=== PATIENT | female | born 1950 | race Caucasian/White ===

== ENCOUNTER 2016-04-11 12:33 | Observation (INO) | payer OTHER, BC ==
--- NOTE | 2016-04-11 12:32 | EDPHY ---
H & P Time Seen by Provider: 04/11/16 12:33 HPI/ROS: CHIEF COMPLAINT: Altered and confused HISTORY OF PRESENT ILLNESS: History from paramedics as well as the patient's partner, Benny Lindsey who presents to the emergency department shortly after her arrival. She takes OxyContin and baclofen as well as Depakote and was found screaming by staff at her residence. On EMS arrival the patient was not verbal, combative, and unable to answer questions. REVIEW OF SYSTEMS: No recent illnesses per the patient's partner. No history of trauma per EMS with the patient's partner. Baseline mental status is normally conversant, baseline physical activity is wheelchair-bound. A comprehensive 10 point review of systems and further history is unobtainable on arrival because of the patient's altered mental status. PAST MEDICAL HISTORY: Multiple sclerosis. No history of suicide attempt per her partner. Social history: No alcohol or tobacco. Moved here 2 months ago from [place]. General Appearance: Patient is alert with eyes open but nonverbal, not cooperative. Eyes: No scleral icterus. Pupils 3 mm reactive. ENT, Mouth: Normal mucous membranes. No tongue laceration or abrasion. Respiratory: Normal respiratory effort, breath sounds equal, lungs are clear to auscultation. Cardiovascular: Regular rate and rhythm. Gastrointestinal: Abdomen is soft and non tender. Neurological: Alert and spontaneously moving all 4 extremities. Combative and resisting attempts to undress her or examine her or start an IV. Face symmetric. Localizes pain. Skin: Warm and dry, no rashes. Musculoskeletal: No peripheral edema and no joint swelling. No joint deformity and no neck stiffness. Psychiatric: Unable, nonverbal. Emergency Department course/MDM: Patient's partner relates that in the past she has occasionally taken too much of her medication resulting in altered mental status. She does not have any external evidence of trauma. She is not febrile. 1250: "move my legs" a little bit more alert, much more likely metabolic or drug related than trauma, structural intracranial abnormality, or infection. 1335: can form a sentence and more alert, Sherry for [place] to stepdown. The patient does not have focal neurologic deficit, clinically is improving, no evidence of trauma, no anticoagulation. I do not think emergent cranial imaging is indicated unless her clinical condition changes. Constitutional: Initial Vital Signs Temperature (C) 36.7 C 04/11/16 12:36 Heart Rate 94 04/11/16 12:36 Respiratory Rate 24 H 04/11/16 12:36 Blood Pressure 150/79 H 04/11/16 12:36 O2 Sat (%) 84 L 04/11/16 12:36 O2 Delivery Mode Room Air O2 (L/minute) 2 Allergies/Adverse Reactions: No Known Allergies Allergy (Unverified 04/11/16 12:50) Home Medications: Medication Instructions Recorded Acyclovir 04/11/16 Calcium 04/11/16 Divalproex [Depakote Sprinkle 125 04/11/16 MG (*)] GABAPENTIN 04/11/16 Methylphenidate 04/11/16 Curran 3 1,000 mg Softgel 04/11/16 Oxycontin 04/11/16 Sulfamethox/Tmp 04/11/16 traZODone 04/11/16 Medical Decision Making - Diagnostics EKG Interpretation: 12-lead EKG interpreted by me; official reading is in trace master. My interpretation is sinus rhythm rate 80 with APC otherwise normal. Imaging: Chest x-ray viewed independently by myself shows no infiltrates or other acute abnormality. Differential Diagnosis: Differential considered including but not limited to intracranial bleed or head trauma, metabolic or hypoglycemia, drug or alcohol, medication reaction or overdose. - Data Points Laboratory Results: Laboratory Results 04/11/16 12:35 04/11/16 12:35 04/11/16 04/11/16 04/11/16 13:00 12:35 12:34 WBC 5.98 10^3/uL (3.80-9.50) RBC 4.62 10^6/uL (4.18-5.33) Hgb 14.1 g/dL (12.6-16.3) POC Hgb 15.6 gm/dL (12.3-15.9) Hct 42.9 % (38.0-47.0) POC Hct 46 % (35.5-47.5) MCV 92.9 fL (81.5-99.8) MCH 30.5 pg (27.9-34.1) MCHC 32.9 g/dL (32.4-36.7) RDW 14.6 % (11.5-15.2) Plt Count 203 10^3/uL (150-400) MPV 12.1 H fL (8.7-11.7) Neut % (Auto) 61.0 % (39.3-74.2) Lymph % (Auto) 21.2 % (15.0-45.0) [place] % (Auto) 15.4 H % (4.5-13.0) Eos % (Auto) 2.0 % (0.6-7.6) Baso % (Auto) 0.2 L % (0.3-1.7) Nucleat RBC Rel Count 0.0 % (0.0-0.2) Absolute Neuts (auto) 3.65 10^3/uL (1.70-6.50) Absolute Lymphs (auto) 1.27 10^3/uL (1.00-3.00) Absolute Monos (auto) 0.92 H 10^3/uL (0.30-0.80) Absolute Eos (auto) 0.12 10^3/uL (0.03-0.40) Absolute Basos (auto) 0.01 L 10^3/uL (0.02-0.10) Absolute Nucleated RBC 0.00 10^3/uL (0-0.01) Immature Gran % 0.2 % (0.0-1.1) Immature Gran # 0.01 10^3/uL (0.00-0.10) POC Sodium 144 mEq/L (134-144) Sodium 145 H mEq/L (134-144) POC Potassium 3.4 mEq/L (3.3-5.0) Potassium 3.9 mEq/L (3.5-5.2) POC Chloride 101 mEq/L (96-108) Chloride 105 mEq/L (97-110) Carbon Dioxide 28 mEq/l (22-31) Anion Gap 12 mEq/L (8-16) POC BUN 11 mg/dL (7-23) BUN 12 mg/dL (7-23) Creatinine 0.5 L mg/dL (0.6-1.0) POC Creatinine 0.6 mg/dL (0.6-1.2) Estimated GFR > 60 Glucose 116 H mg/dL (70-100) POC Glucose 122 H mg/dL (70-100) Calcium 9.6 mg/dL (8.5-10.4) Urine RBC NONE SEEN /hpf (0-3) Urine WBC 1-3 /hpf (0-3) Ur Epithelial Cells NONE SEEN /lpf (NONE-1+) Urine Bacteria NONE SEEN /hpf (NONE SEEN) Urine Mucus NONE SEEN /lpf (NONE-1+) Salicylates < 1.0 L mg/dL (2.0-20.0) Urine Opiates Screen NEGATIVE (NEGATIVE) Acetaminophen < 10 L mcg/mL (10.0-30.0) Urine Barbiturates NEGATIVE (NEGATIVE) Valproic Acid 33.7 L mcg/mL (50.0-150.0) Ur Phencyclidine Scrn NEGATIVE (NEGATIVE) Ur Amphetamine Screen NEGATIVE (NEGATIVE) U Benzodiazepines Scrn NEGATIVE (NEGATIVE) Urine Cocaine Screen NEGATIVE (NEGATIVE) U Marijuana (THC) Screen NEGATIVE (NEGATIVE) Ethyl Alcohol < 10 mg/dL (0-10) Medications Given: Discontinued Medications Sodium Chloride (Ns) 1,000 mls @ 0 mls/hr IV ONCE ONE PRN Reason: Wide Open Stop: 04/11/16 12:55 Last Admin: 04/11/16 12:59 Dose: 1,000 mls Point of Care Test Results: 04/11/16 12:34 POC Sodium 144 POC Potassium 3.4 POC Chloride 101 POC BUN 11 POC Creatinine 0.6 POC Glucose 122 H Departure - Departure Disposition: [facility] Inpatient Acute Clinical Impression: Altered mental status Condition: Serious
[2016-04-11] MEDS ORDERED: NS 1,000 ML IV ONE (12:54)
[2016-04-11 13:01] LABS: % IMMATURE GRANULYOCYTES 0.2 % (0.0-1.1); ABSOLUTE IMMATURE GRANULOCYTES 0.01 10^3/uL (0.00-0.10); ADD DIFF? NO; ADD MORPH? NO; ADD SCAN? NO; ATYPICAL LYMPHOCYTE FLAG 10 (0-99); FRAGMENT RBC FLAG 0 (0-99); HEMATOCRIT 42.9 % (38.0-47.0); HEMOGLOBIN 14.1 g/dL (12.6-16.3); LEFT SHIFT FLG 0 (0-99); LIPEMIA HEMOLYSIS FLAG 80 (0-99); MEAN CELL HEMOGLOBIN 30.5 pg (27.9-34.1); MEAN CELL HEMOGLOBIN CONCENTR. 32.9 g/dL (32.4-36.7); MEAN CELL VOLUME 92.9 fL (81.5-99.8); MEAN PLATELET VOLUME 12.1 fL (8.7-11.7); PLATELET CLUMPS FLAG 10 (0-99); PLATELET COUNT 203 10^3/uL (150-400); RED BLOOD CELL COUNT 4.62 10^6/uL (4.18-5.33); RED CELL DISTRIBUTION WIDTH 14.6 % (11.5-15.2)
--- NOTE | 2016-04-11 13:22 | CPEKG ---
Heart Rate: 80 RR Interval: 750 P-R Interval: 152 QRSD Interval: 74 QT Interval: 416 QTC Interval: 480 P [place]: 67 QRS [place]: 28 T Wave [place]: 55 EKG Severity - OTHERWISE NORMAL ECG - EKG Impression: SINUS RHYTHM EKG Impression: ATRIAL PREMATURE COMPLEX Electronically Signed By: Devendra Mittal 11-Apr-2016 13:50:21
[2016-04-11 13:23] LABS: ANION GAP 12 mEq/L (8-16); CALCIUM 9.6 mg/dL (8.5-10.4); CARBON DIOXIDE 28 mEq/l (22-31); CHLORIDE 105 mEq/L (97-110); CREATININE 0.5 mg/dL (0.6-1.0); ETHANOL SERUM < 10 mg/dL (0-10); GLOMERULAR FILTRATION RATE > 60; GLUCOSE 116 mg/dL (70-100); POTASSIUM 3.9 mEq/L (3.5-5.2); SALICYLATE < 1.0 mg/dL (2.0-20.0); SODIUM 145 mEq/L (134-144)
[2016-04-11 13:28] LABS: BACTERIA NONE SEEN /hpf (NONE SEEN); MUCUS NONE SEEN /lpf (NONE-1+); RBC,URINE NONE SEEN /hpf (0-3)
--- NOTE | 2016-04-11 14:41 | DX ---
Portable AP chest. 04/11/2016 at 1315 History: Altered mental status. Hypoxia. Findings: Lungs are clear. Heart size is normal. No infiltrate, effusion, pneumothorax. Impression: Negative portable chest
[2016-04-11] MEDS ORDERED: ALBUTEROL 3 ML DEYVIAL IH PRN (15:14)
[2016-04-11] MEDS ORDERED: PROMETHAZINE HCL 25 MG/ML INJ IVP PRN (15:14)
[2016-04-11] MEDS ORDERED: ACETAMINOPHEN 325 MG TAB PO PRN (15:14)
[2016-04-11] MEDS ORDERED: LORazepam 2 MG/ML INJ IVP PRN (15:14)
[2016-04-11] MEDS ORDERED: LORazepam 0.5 MG TAB PO PRN (15:14)
[2016-04-11] MEDS ORDERED: ONDANSETRON 4 MG/2 ML VIAL IVP PRN (15:14)
[2016-04-11] MEDS ORDERED: ONDANSETRON DISINTEGRATING 4 MG TAB PO PRN (15:14)
[2016-04-11] MEDS ORDERED: NS 1,000 ML IV SCH (15:15)
[2016-04-11] MEDS: oxyCODONE IR 5 MG TAB PO PRN (15:38)
[2016-04-11] MEDS ORDERED: HALOPERIDOL LACT 5 MG/ML INJ IVP PRN (16:02)
--- NOTE | 2016-04-11 16:46 | GHP ---
[f rep st] HISTORY AND PHYSICAL DATE OF ADMISSION: 04/11/2016 CHIEF COMPLAINT: Confusion. HISTORY: This is a 65-year-old female with a past medical history of multiple sclerosis and chronic pain, with continuous narcotic use and dependency, who was found agitated and confused at her assiste d living center. The patient has recently moved here from [place]. At the time of my evaluation, t he patient remains somewhat combative and tangential, having difficulty answering questions appropria tely. The majority of this history is obtained per chart review and from the patient's partner who h ad previously been present in the ER. It sounds as if she was found with multiple pill bottles open on her chest, and there was a concern that she had taken too many of her pain medications. Apparentl y, she has done similar things in the past. At the time of my evaluation, she was able to tell me th at she did not do this on purpose but because her legs were hurting her. It does seem as if even rou tinely she takes what would typically be an overdose of baclofen at 40 mg, five times a day. She has no other complaints, other than wanting to get out of the hospital and stating that her legs hurt. PAST MEDICAL HISTORY: 1. Multiple sclerosis. 2. Prior inadvertent medication overdoses. 3. Chronic pain with continuous narcotic use and dependency. SOCIAL HISTORY: The patient is a nondrinker and non drug user. No significant alcohol use. She mov ed here two months ago for [place] and is living at the [facility]. FAMILY HISTORY: This is unobtainable, secondary to the patient's mental status, and not available in the chart. REVIEW OF SYSTEMS: Unobtainable, secondary to patient's mental status, though for what it is worth, a 10-point review of systems was attempted to be obtained negative, as far as the patient is able to tell me. MEDICATIONS: Include: 1. Baclofen 40 every five hours. 2. Trazodone 300 at bedtime. 3. OxyContin 15 q.8h. 4. [place]-3 fatty acids. 5. Gabapentin 800, three times daily. 6. Depakote 250 daily. 7. Calcium. 8. Acyclovir. ALLERGIES: No known drug allergies. PHYSICAL EXAM: VITAL SIGNS: BP 106/68, heart rate 67, respiratory rate 12, O2 saturation 98% on nila m air, temperature 36.7. GENERAL APPEARANCE: This is a chronically ill-appearing, thin female. She is awake and alert. She is agitated. EYES: Anicteric. HENT: Oropharynx clear. CARDIOVASCULAR: RRR, no MRG. PULMONARY: CTA bilaterally. ABDOMEN: Soft , nontender. Positive bowel sounds. EXTREMITIES: Decreased bulk, normal tone, no clubbing cyanosis or edema. SKIN: Warm, dry and well perfused. NEURO/PSYCHIATRIC: Again, the patient is agitated and tangential. She is moving all 4 extremities. Cranial nerves appear to be intact. She is having difficulty following commands, secondary to her a gitation. CLINICAL DATA: Labs reviewed. White count of 5.9, hematocrit 42.9. Chemistry remarkable for sodium 145, creatinine 0.5. Urinalysis is unremarkable UTox is negative. EKG reviewed and interpreted independently by myself showing sinus rhythm without ischemic changes. Chest x-ray, reviewed and interpreted independently by myself showing a negative portable chest. Dennise gs clear. ASSESSMENT AND PLAN: This is a 65-year-old female, past medical history of multiple sclerosis, chron ic pain and continuous narcotic use and dependency, who presents with likely inadvertent medication o verdose. 1. Inadvertent overdose, likely baclofen and OxyContin which were found on her body. She is awake a nd protecting her airway, though she remains agitated. This does sound as if it has been a problem f or her in the past as well but not related to suicidal ideation. The plan will be to monitor her ove rnight on telemetry. Again, at this time, she does appear to be both mentating able to protect her a irway and in fact is very adamant that she wants to go home. 2. Acute encephalopathy, in the setting of likely inadvertent drug overdose. She does seem to be cl earing rapidly. She is agitated. I suspect this is a toxic metabolic encephalopathy, in the setting of medication overdose including baclofen and OxyContin. As needed Ativan and Haldol and overnight monitoring. 3. Chronic pain, with continuous narcotic use and dependency. Will likely resume her regimen of Oxy Contin, though will first start with short-acting oxycodone to be sure that she does not become somno lent again. We will put her on a more appropriate dose of baclofen at 20 three times daily. We will monitor and see if resuming her home regimen is appropriate, though at this point I have concerns th at it has led to her confusion as above. 4. Multiple sclerosis. She does not seem to be suffering any thing that would suggest a multiple sc lerosis exacerbation. Will give her some names for some local neurologists, in case she has not yet established care. We will continue her gabapentin and again lower dose baclofen. 5. Disposition. Observation status. I suspect she will be ready for discharge tomorrow, so long as her mental status has improved. The patient is in my care. Old records reviewed and summarized, as per HPI and past medical history. Care plan reviewed with ER physician, including plans for observation overnight. /[id number]/MODL
[2016-04-11] MEDS: GABAPENTIN 400 MG CAP PO SCH ×2 (20:30→23:07)
[2016-04-11] MEDS: ACYCLOVIR 400 MG TAB PO SCH (20:30)
[2016-04-11] MEDS: BACLOFEN 20 MG TAB PO SCH ×2 (20:30→23:08)
[2016-04-11] MEDS ORDERED: traZODone 100 MG TAB PO SCH (21:00)
[2016-04-12 05:22] LABS: % IMMATURE GRANULYOCYTES 0.4 % (0.0-1.1); ABSOLUTE IMMATURE GRANULOCYTES 0.04 10^3/uL (0.00-0.10); ADD DIFF? NO; ADD MORPH? NO; ADD SCAN? NO; ATYPICAL LYMPHOCYTE FLAG 0 (0-99); FRAGMENT RBC FLAG 0 (0-99); HEMATOCRIT 38.4 % (38.0-47.0); HEMOGLOBIN 12.6 g/dL (12.6-16.3); LEFT SHIFT FLG 0 (0-99); LIPEMIA HEMOLYSIS FLAG 80 (0-99); MEAN CELL HEMOGLOBIN 30.7 pg (27.9-34.1); MEAN CELL HEMOGLOBIN CONCENTR. 32.8 g/dL (32.4-36.7); MEAN CELL VOLUME 93.7 fL (81.5-99.8); MEAN PLATELET VOLUME 11.8 fL (8.7-11.7); PLATELET CLUMPS FLAG 10 (0-99); PLATELET COUNT 187 10^3/uL (150-400); RED CELL DISTRIBUTION WIDTH 14.7 % (11.5-15.2)
[2016-04-12 05:40] LABS: ANION GAP 8 mEq/L (8-16); CALCIUM 8.9 mg/dL (8.5-10.4); CARBON DIOXIDE 27 mEq/l (22-31); CHLORIDE 107 mEq/L (97-110); CREATININE 0.5 mg/dL (0.6-1.0); GLOMERULAR FILTRATION RATE > 60; GLUCOSE 114 mg/dL (70-100); POTASSIUM 4.1 mEq/L (3.5-5.2); SODIUM 142 mEq/L (134-144)
[2016-04-12 07:59] LABS: COLOR PALE YELLOW; LEUKOCYTE ESTERASE,URINE NEGATIVE (NEGATIVE); NITRITE,URINE NEGATIVE (NEGATIVE)
[2016-04-12 08:01] VITALS: RESP 16; TEMP 99.5
[2016-04-12] MEDS ORDERED: CALCIUM CARBONATE 500 MG TAB PO SCH (09:00)
[2016-04-12] MEDS ORDERED: OMEGA-3 FATTY ACIDS 1,000 MG CAP PO SCH (09:00)
[2016-04-12] MEDS ORDERED: ENOXAPARIN 40 MG/0.4 ML SYR SC SCH (09:00)
[2016-04-12] MEDS ORDERED: DIVALPROEX ER 250 MG TAB PO SCH (09:00)
[2016-04-12] MEDS: oxyCODONE IR 5 MG TAB PO PRN (09:09)
[2016-04-12] MEDS: GABAPENTIN 400 MG CAP PO SCH (09:10)
[2016-04-12] MEDS: ACYCLOVIR 400 MG TAB PO SCH (09:10)
[2016-04-12] MEDS: BACLOFEN 20 MG TAB PO SCH (09:20)
[2016-04-12] MEDS ORDERED: oxyCODONE CR 15 MG TAB PO SCH (11:00)
[2016-04-12] MEDS ORDERED: BACLOFEN 20 MG TAB PO SCH (11:00)
[2016-04-12] MEDS ORDERED: PNEUMOC 13-VAL CONJ-DIP CRM/PF 0.5 ML SYR IM ONE (11:08)
[2016-04-12 12:04] VITALS: BP 117/74; PULSE 66; O2SAT 96
--- NOTE | 2016-04-12 20:19 | GDS ---
[f rep st] DISCHARGE SUMMARY DISCHARGE DIAGNOSES: 1. Inadvertent baclofen overdose. 2. Multiple sclerosis with spasticity. 3. Acute toxic encephalopathy. 4. Chronic pain with continuous narcotic dependency. HISTORY: This patient is a 65-year-old female with a longstanding history of multiple sclerosis and chronic pain. She takes very high doses of baclofen for her spasticity. She occasionally will take extra doses when she is really struggling with it. On the night prior to admission, it appears she d id take extra doses of baclofen and oxycodone and subsequently presented with severe encephalopathy d ue to this inadvertent overdose. There is no evidence of her being suicidal. She was monitored over night in the ICU and woke up. She was counseled at length regarding not taking any further extra dos es of her medications. It was also recommended she consider decreasing her baclofen, as her standing dose is much higher than the highest recommended max dose. She refused, stating she had been on thi s medication for many years. I will defer to her outpatient providers. She was seen by Physical The rapy and felt to be near baseline regarding her functional status and cleared to go back to [facility] where she lives. DISCHARGE MEDICATIONS: Please see computer record for full detailed list. There are no new medicati ons given at the time of hospital discharge. The patient was seen and examined by me on day of discharge. /[id number]/MODL
== END 2016-04-12 12:49 | disposition home or self-care (01) ==
LOC: INTOOBSV 13:43 → F2N 18:11
PROVIDERS: ADMIT Internal Medicine; ATTEND Internal Medicine
DX: T42.8X1A Poisoning by antiparkinsonism drugs and other central muscle-tone depressants, accidental (unintentional), initial encounter (principal); G35 Multiple sclerosis; G89.29 Other chronic pain; Z23 Encounter for immunization
CPT/HCPCS: 71010; 90670; 93005; 96360; 97163; 97165; 99285; G0009; G0378; G8978; G8979; G8980; G8987; G8988; G8989; 80305; 82947-QW; G0480; J1650

== ENCOUNTER 2016-06-13 01:42 | Inpatient (IN) | payer OTHER, MEDICARE ==
--- NOTE | 2016-06-13 01:55 | EDPHY ---
H & P Time Seen by Provider: 06/13/16 01:49 HPI/ROS: Chief Complaint: Weakness, dizziness, fall HPI: 65-year-old woman with a history of MS states that for the last several days she has been keeping increasingly weak and dizzy. She had a fall earlier this evening and struck her head. She denies loss of consciousness. She has continued to complain of dizziness and called EMS for concerns about an MS exacerbation. Patient has been very somnolent for EMS but arousable. She does take 50 mg of oxycodone 3 times a day for her chronic MS pain. She states there have been no changes to her medications recently. No fevers or chills. No urinary problems. She does not straight cath. No chest pain or shortness of breath. No headache. ROS: 10 point Review of Systems is negative except as noted in the HPI. PMH: Multiple sclerosis Medications: Baclofen, OxyContin, trazodone, gabapentin, methylphenidate, Allergies: No known drug allergies Social History: No smoking, no alcohol, no recreational drug use Family History: non-contributory Physical Exam: Gen: Somnolent, arousable, answering questions which is soft sleeve during history HEENT: The has a abrasion to the bridge of her nose, infraorbital ecchymosis on the left without facial deformity or tenderness Nose: no rhinorrhea Eyes: PERRLA, 2 mm and reactive bilaterally EOMI Mouth: Dry oral mucosa Neck: Supple, no JVD Chest: nontender, lungs clear to auscultation Heart: S1, S2 normal, no murmur Abd: Soft, non-tender, no guarding Back: no CVA tenderness, no midline tenderness Ext: no edema, non-tender Skin: no rash Neuro: CN II-XII intact, Sensation grossly intact, Strength 5/5 in bilateral upper and lower extremities - Medical/Surgical History Hx Asthma: No Hx Chronic Respiratory Disease: No Hx Diabetes: No Hx Cardiac Disease: No Hx Renal Disease: No Hx Cirrhosis: No Hx Alcoholism: No Hx HIV/AIDS: No Hx Splenectomy or Spleen Trauma: No Other PMH: PMH: MS - Social History Smoking Status: Former smoker Constitutional: Initial Vital Signs Temperature (C) 36.3 C 06/13/16 01:55 Heart Rate 81 06/13/16 01:55 Respiratory Rate 16 06/13/16 01:55 Blood Pressure 150/83 H 06/13/16 01:55 O2 Sat (%) 97 06/13/16 01:55 O2 Delivery Mode Room Air O2 (L/minute) 2 Allergies/Adverse Reactions: No Known Allergies Allergy (Verified 06/13/16 01:57) Home Medications: Medication Instructions Recorded Acyclovir [Zovirax 400 mg (*)] 400 mg PO BID 04/11/16 Baclofen [Baclofen 20 mg (*)] 40 mg PO Q5H 04/11/16 Calcium Carbonate [Oyster Shell 500 mg PO DAILY 04/11/16 Calcium 500 mg (*)] Divalproex ER [Depakote ER 250 MG 250 mg PO DAILY 04/11/16 (*)] Gabapentin [Neurontin 400 MG (*)] 800 mg PO TID 04/11/16 [place]-3 Fatty Acids [Fish Oil 1000 1,000 mg PO DAILY 04/11/16 mg (*)] oxyCODONE CR [Oxycontin] 15 mg PO Q8H 04/11/16 traZODone [traZODONE 100MG (*)] 300 mg PO HS 04/11/16 Bactrim DS 06/13/16 Methylphenidate 06/13/16 Medical Decision Making - Diagnostics Imaging: CT head negative per Dr. Ordonez. ED Course/Re-evaluation: Patient increasingly somnolent. The CT scan of the head is negative. Blood pressures dropped to 80 systolic. She was given Narcan 0.4 mg IV with immediate response. Patient woke up. Blood pressure returned to normal. Patient awake and alert and following commands. Currently without complaint. Patient is asking for pain medicine. I have explained that the Narcan has not yet worn off the with the has a low possibly make her sleepy again. Patient is a little bit more somnolent now. States that she has been increasingly for the last 2 days and has not changed her narcotic use. She lives in an independent living in assisted living facility. She does not have any help in the home at this time. She does have a increasing falls. She is not able to transfer or ambulate at this time. Patient will be admitted for further evaluation and assessment of possible exacerbation of her MS with evaluation of her pain medication use as well. I have discussed with , hospitalist. He will admit to his service for further care. - Data Points Laboratory Results: Laboratory Results 06/13/16 02:08 06/13/16 02:08 06/13/16 06/13/16 06/13/16 02:41 02:08 02:08 WBC 6.69 10^3/uL 10^3/uL (3.80-9.50) RBC 4.28 10^6/uL 10^6/uL (4.18-5.33) Hgb 12.3 g/dL L g/dL (12.6-16.3) Hct 38.6 % % (38.0-47.0) MCV 90.2 fL fL (81.5-99.8) MCH 28.7 pg pg (27.9-34.1) MCHC 31.9 g/dL L g/dL (32.4-36.7) RDW 16.1 % H % (11.5-15.2) Plt Count 234 10^3/uL 10^3/uL (150-400) MPV 11.4 fL fL (8.7-11.7) Neut % (Auto) 73.1 % % (39.3-74.2) Lymph % (Auto) 9.9 % L % (15.0-45.0) [place] % (Auto) 13.9 % H % (4.5-13.0) Eos % (Auto) 2.7 % % (0.6-7.6) Baso % (Auto) 0.1 % L % (0.3-1.7) Nucleat RBC Rel Count 0.0 % % (0.0-0.2) Absolute Neuts (auto) 4.89 10^3/uL 10^3/uL (1.70-6.50) Absolute Lymphs (auto) 0.66 10^3/uL L 10^3/uL (1.00-3.00) Absolute Monos (auto) 0.93 10^3/uL H 10^3/uL (0.30-0.80) Absolute Eos (auto) 0.18 10^3/uL 10^3/uL (0.03-0.40) Absolute Basos (auto) 0.01 10^3/uL L 10^3/uL (0.02-0.10) Absolute Nucleated RBC 0.00 10^3/uL 10^3/uL (0-0.01) Immature Gran % 0.3 % % (0.0-1.1) Immature Gran # 0.02 10^3/uL 10^3/uL (0.00-0.10) Sodium 142 mEq/L mEq/L (134-144) Potassium 4.8 mEq/L mEq/L (3.5-5.2) Chloride 103 mEq/L mEq/L (97-110) Carbon Dioxide 29 mEq/l mEq/l (22-31) Anion Gap 10 mEq/L mEq/L (8-16) BUN 20 mg/dL mg/dL (7-23) Creatinine 0.5 mg/dL L mg/dL (0.6-1.0) Estimated GFR > 60 Glucose 95 mg/dL mg/dL (70-100) Calcium 9.6 mg/dL mg/dL (8.5-10.4) Urine Color YELLOW Urine Appearance CLEAR Urine pH 5.0 (5.0-7.5) Ur Specific [place] 1.021 (1.002-1.030) Urine Protein NEGATIVE (NEGATIVE) Urine Ketones TRACE H (NEGATIVE) Urine Blood NEGATIVE (NEGATIVE) Urine Nitrate NEGATIVE (NEGATIVE) Urine Bilirubin NEGATIVE (NEGATIVE) Urine Urobilinogen NEGATIVE EU EU (0.2-1.0) Ur Leukocyte Esterase NEGATIVE (NEGATIVE) Ur Culture Indicated? NOT INDICATED (NI) Urine Glucose NEGATIVE (NEGATIVE) Medications Given: Discontinued Medications Sodium Chloride (Ns) 1,000 mls @ 0 mls/hr IV ONCE ONE PRN Reason: Wide Open Stop: 06/13/16 02:45 Last Admin: 06/13/16 02:45 Dose: 1,000 mls Naloxone HCl (Narcan) 0.4 mg IVP EDNOW ONE Stop: 06/13/16 02:56 Last Admin: 06/13/16 02:55 Dose: 0.4 mg Departure - Departure Disposition: [facility] Inpatient Acute Clinical Impression: Weakness, Multiple sclerosis, Fall Condition: Fair Referrals: Patient,NotPresent [Unknown] - As per Instructions
[2016-06-13 02:14] LABS: % IMMATURE GRANULYOCYTES 0.3 % (0.0-1.1); ABSOLUTE IMMATURE GRANULOCYTES 0.02 10^3/uL (0.00-0.10); ADD DIFF? NO; ADD MORPH? NO; ADD SCAN? NO; ATYPICAL LYMPHOCYTE FLAG 10 (0-99); FRAGMENT RBC FLAG 0 (0-99); HEMATOCRIT 38.6 % (38.0-47.0); HEMOGLOBIN 12.3 g/dL (12.6-16.3); LEFT SHIFT FLG 0 (0-99); LIPEMIA HEMOLYSIS FLAG 80 (0-99); MEAN CELL HEMOGLOBIN 28.7 pg (27.9-34.1); MEAN CELL HEMOGLOBIN CONCENTR. 31.9 g/dL (32.4-36.7); MEAN CELL VOLUME 90.2 fL (81.5-99.8); MEAN PLATELET VOLUME 11.4 fL (8.7-11.7); PLATELET CLUMPS FLAG 20 (0-99); PLATELET COUNT 234 10^3/uL (150-400); RED BLOOD CELL COUNT 4.28 10^6/uL (4.18-5.33); RED CELL DISTRIBUTION WIDTH 16.1 % (11.5-15.2)
[2016-06-13 02:38] LABS: ANION GAP 10 mEq/L (8-16); CALCIUM 9.6 mg/dL (8.5-10.4); CARBON DIOXIDE 29 mEq/l (22-31); CHLORIDE 103 mEq/L (97-110); CREATININE 0.5 mg/dL (0.6-1.0); GLOMERULAR FILTRATION RATE > 60; GLUCOSE 95 mg/dL (70-100); POTASSIUM 4.8 mEq/L (3.5-5.2); SODIUM 142 mEq/L (134-144)
[2016-06-13] MEDS ORDERED: NS 1,000 ML IV ONE (02:44)
[2016-06-13] MEDS ORDERED: NALOXONE HCL 0.4 MG/ML INJ ONE ×2 (02:49→06:50)
[2016-06-13 02:54] LABS: COLOR YELLOW; LEUKOCYTE ESTERASE,URINE NEGATIVE (NEGATIVE); NITRITE,URINE NEGATIVE (NEGATIVE)
[2016-06-13] MEDS ORDERED: NALOXONE HCL 0.4 MG/ML INJ IVP ONE ×2 (02:55→07:00)
[2016-06-13] MEDS ORDERED: NALOXONE HCL 0.4 MG/ML INJ IVP PRN ×2 (06:50→09:22)
[2016-06-13] MEDS ORDERED: ONDANSETRON DISINTEGRATING 4 MG TAB PO PRN (07:27)
[2016-06-13] MEDS ORDERED: ONDANSETRON 4 MG/2 ML VIAL IVP PRN (07:27)
[2016-06-13] MEDS ORDERED: ACETAMINOPHEN 325 MG TAB PO PRN (07:27)
[2016-06-13] MEDS ORDERED: NS 1,000 ML IV SCH (07:30)
--- NOTE | 2016-06-13 08:24 | GHP ---
[f rep st] HISTORY AND PHYSICAL DATE OF ADMISSION: 06/13/2016 CHIEF COMPLAINT: Altered mental status, fall. HISTORY OF PRESENT ILLNESS: On my visit with the patient, she was unarousable and required 0.4 of N arcan. Currently, she is answering questions, although she is not completely making sense, thus his tory is mostly obtained from the chart. This is a 65-year-old female who has a history of multiple sclerosis. Apparently she had moved from [place] recently and living in assisted living. She has a history of chronic pain and was admitte d in April of this year for confusion and agitation. She does have a history of previous medicat ion overdoses. Apparently she has been falling at her assisted living frequently and came in [facility] e of weakness and dizziness. She struck her head, but she did not lose any consciousness. When she came to the emergency department, she was given 0.4 of Narcan and woke up to the point where she wa s able to answer questions and ask for pain medicines. Currently, she is complaining of some pain i n her arm and her head. She does know that she is in [place]. REVIEW OF SYSTEMS: Unable to be obtained secondary to the patient's mental status. PAST MEDICAL HISTORY: 1. MS. 2. Chronic pain, on chronic narcotics. 3. Previous medication overdoses. SOCIAL HISTORY: No smoking or alcohol. Lives in assisted living. FAMILY HISTORY: Unable to be obtained. MEDICATIONS: From last admission reviewed and apparently her OxyContin has gone up from 15 mg every 8 hours to 50 mg, according to the ER physician. PHYSICAL EXAMINATION: VITAL SIGNS: Afebrile, blood pressure 99/49, heart rate 75, oxygen saturatio n is 97% on 2 L. GENERAL: The patient is well developed, somnolent, but is now answering questions with mumbling. HEENT: Pupils are about 1-2 mm, reactive and equal. NECK: Supple. No thyromegal y. LUNGS: Good effort. Clear to auscultation bilaterally. CARDIOVASCULAR: Regular rate and rhyt hm. No murmurs, gallops. ABDOMEN: Positive bowel sounds. Soft, nontender, nondistended. No hepa tosplenomegaly. EXTREMITIES: No clubbing, cyanosis, or edema. SKIN: Without rash, dry, intact. NEURO: Somnolent but arousable. LABORATORY DATA: CBC is normal. Chemistry is normal. UA is negative. CT scan: I am unable to vi ew the report, but per ER physician is negative. ASSESSMENT: This is a 65-year-old female with a history of multiple sclerosis and chronic opiate us e presenting with somnolence that appears to be responding to Narcan. PLAN: 1. Acute encephalopathy. This appears to be due to medication overdose. However, she does have a history of MS, and we would want to further evaluate if her increasing weakness may be due to MS exa cerbation. I am going to hold off on getting an MRI at this point to see where she ends up after di scontinuing her medications. She did hit her head. Her initial CT scan is negative, but we will co thu to monitor her closely for worsening mental status that has not respond to Narcan and to eval uate for head bleed. She is not on anticoagulation and did not lose consciousness, so this is proba laureen low risk. 2. Opiate overdose. The patient has been on large doses of OxyContin. It may take some time to cl ear this. We will be giving Narcan as needed and may give her another dose pretty soon here since s he did not wake up fully with the 0.4 that we gave her. She may require a Narcan drip if she is req uiring a lot of Narcan. 3. History of MS. 4. Admission. Patient will be admitted under full admission status. Case discussed with ER valentina walsh. Old records reviewed and summarized in the HPI. /[id number]/MODL
--- NOTE | 2016-06-13 09:41 | HOSPPROG ---
Hospitalist Progress Note Assessment/Plan: Acute encephalopathy - Still sedated this am, though awakens, stays awake and converses appropriately. I suspect this is medication induced as she is on several centrally sedating medications (oxycontin, trazodone, gabapentin, baclofen). Oxycontin dose recently increased to TID 3 months ago. In addition , Lubiprostone has been known to cause syncope at the high dose she is on. Also consider MS flare. -requested neurology consult to consider component of MS flare -hold trazodone, gabapentin, lubiprostone for now -will resume opioids this evening to prevent w/d, but change to low dose oxycodone -cont neurochecks, repeat head CT if changes in neurostatus or doesn't cont to improve. MS - neurology consult as above. Will reduce Baclofen dose (max dose 20 mg QID and she is taking 40 mg 5x daily). -consider MRI, will defer to neuro recs Full code Dispo - cont inpt Subjective: Pt sleeping, protecting airway, awakens to firm sternal rub. Denies CP or SOB. No thomson or vision changes. She is quite weak at baseline due to MS, wheelchair bound. She is asking to eat. Objective: Vital Signs Temp Pulse Resp BP Pulse Ox 36.2 C 75 13 99/49 L 97 06/13/16 05:35 06/13/16 05:35 06/13/16 05:35 06/13/16 05:35 06/13/16 05:35 06/12/16 06/13/16 06/14/16 05:59 05:59 05:59 Intake Total 1240 Output Total 300 Balance 940 - Physical Exam Constitutional: no apparent distress Eyes: PERRL Ears, Nose, Mouth, Throat: moist mucous membranes Cardiovascular: regular rate and rhythym Respiratory: no respiratory distress, clear to auscultation Gastrointestinal: normoactive bowel sounds, soft, non-tender abdomen Skin: warm Musculoskeletal: other (b/l tr - 1+ LE edema, abrasions on toes w/o erythema or purulence) Neurologic: AAOx3, other (b/l UE and LE weakness, decreased duck farmer strength, no facial droop. pronator drift neg.) Psychiatric: encephalopathic ICD10 Worksheet Patient Problems: Problems Problem Status Onset Fall Acute Multiple sclerosis Acute Weakness Acute Altered mental status Acute
[2016-06-13] MEDS ORDERED: BACLOFEN 20 MG TAB PO SCH (10:00)
[2016-06-13] MEDS: ENOXAPARIN 40 MG/0.4 ML SYR SC SCH (10:52)
[2016-06-13] MEDS: BACLOFEN 20 MG TAB PO SCH ×3 (10:54→21:47)
--- NOTE | 2016-06-13 12:43 | PDCONSULT ---
Marketing Technology Coordinator Note: HOSPITAL NEUROLOGY CONSULT REQUESTING: Denise Arellano DO REASON: AMS HPI: This is a 65-year-old woman with a history of multiple sclerosis, chronic pain on chronic narcotics, prior overdoses on her narcotic medication who presented to our emergency department yesterday due to weakness, dizziness and altered mental status. The patient is currently quite somnolent, so history is limited. Per the record, the patient lives in assisted living. She is on multiple sedating and psychoactive medications. She had apparently been complaining of weakness, dizziness at her assisted living facility and staff there found her to be altered. She was brought to our Emergency Department where she was indeed found to have global weakness as well as confusion and inappropriate content of speech. She was given Narcan in the emergency room which seem to improve her overall condition. She has continued to fluctuate in terms of her mental status and strength. The patient states that she is wheelchair bound, but she also tells me that she walks with hiking poles. I do not have a good sense of her baseline functional status. Also, I don't have any meaningful history regarding her prior MS. ROS: As per the HPI, otherwise a complete 12 point ROS was performed and is negative ALLERGIES AND MEDS: As recorded in the EMR - reviewed and reconciled PFSH: As per the intake H&P by Dr. Lebron from yesterday EXAM: VS reviewed in EMR GEN: chronically ill appearing woman, disheveled HEENT: NCAT, sclera anicteric, conjunctiva not injected, MMM, oropharynx clear, no scalp tenderness NECK: supple, nontender, no meningismus CV: RRR s1 s2 wo m/r/c/g. Carotid pulses 2+ wo bruit NEURO: MS: somnolent with reduced attention. She tends to nod off about every 30 seconds. I can arouse her with verbal stimulation. She is oriented to place but not date or situation. Speech nondysarthric. Content of speech is tangential and often not appropriate to the topic at hand. No language disturbance. Follows commands with prompting. Attends to both sides. Seems to have some episodic memory impairment. Mood withdrawn with flat affect. Poor insight. CN: pupils 3mm round and reactive. Intolerant of fundoscopy. VFF. Primary gaze centered. Full ocular motility. Smooth pursuit with saccadic intrusion. Facial sensation preserved. Face symmetric. Hearing grossly intact to finger rub. Palatoglossal movements intact. Shoulder shrug and head turn strong. MOTOR: normal bulk. Low tone throughout. No adventitial movements. Has variable degree of weakness in each limb ranging from complete absence of movement to antigravity strength. SENSORY: intact to all modalities throughout. No extinction. COORD: no ataxia FN/HS. Francesca labored. REFLEX: plantars down. No clonus. DTRS absent. GAIT: unable to assess safely due to weakness DATA REVIEW: Labs reviewed in EMR PERSONALLY INTERPRETED RESULTS AND DATA: CT head wo 06/12 - global volume loss, periventricular hypodensities with more prominent focal areas cranial to the ventricles, likely related to MS, but could be microvascular in origin. IMPRESSION AND RECOMMENDATIONS: // ENCEPHALOPATHY - SUSPECT TOXIC // GLOBAL WEAKNESS // HX MS // HX OVERDOSE Patient is on multiple sedating/disinhibiting medications. Her clinical picture is that of an encephalopathy with global weakness. Her weakness is variable without focality. I suspect more of a global cerebral dysfunction from likely intoxication of her multiple sedating medications. At this point, I would continue to supportive measures for suspected medication intoxication. If her clinical picture does not improve in 24-48 hours, then we can proceed with MRI brain and C-spine wow to evaluate for new demyelinating change. 70 mins in direct patient care activities on the floor. Case was reviewed/discussed with nursing and Dr. Arellano on the floor.
[2016-06-13] MEDS: DIVALPROEX ER 250 MG TAB PO SCH ×2 (17:08→21:47)
[2016-06-13] MEDS ORDERED: oxyCODONE IR 5 MG TAB PO PRN (19:00)
[2016-06-14] MEDS: BACLOFEN 20 MG TAB PO SCH ×4 (06:40→20:42)
--- NOTE | 2016-06-14 08:45 | NEUROPROG ---
Assessment: Patient notes that she has markedly improved overnight. This is in the setting of simple supportive measures and reducing the amount of sedating/disinhibited/ psychoactive medications. She had some incontinence last night. She is otherwise feeling much better and close to baseline. She has no new complaints today. On exam she does have markedly improved strength overall, however, she does continue to have variable effort in strength testing of the upper extremities. She is able to sustain antigravity in the upper extremities and has some trace weakness in all groups. She can still activate the lower extremities, but still has difficulty with antigravity. This is in a setting of her being wheelchair-bound at baseline. She is awake alert and oriented this morning and has good attention span today. Still has poor insight. Given her marked good improvement overnight with simple supportive measures and cutting back on her sedating/psychoactive medications, I am in agreement with our Internal Medicine colleagues that the likely culprit in her presentation was unintentional overdose on her multiple psychoactive/sedating medications. At this point, would advise continued supportive care. I do not think we need to pursue neuro imaging at this point. She is going to be evaluated by physical therapy, occupational therapy. She can follow up with her outpatient neurologist at discharge. Otherwise we will sign off. Please recall as needed. Today's visit was spent primarily in counseling and coordination of care. 25 minutes in direct patient care activities on the floor. Objective: Vital Signs Temp Pulse Resp BP Pulse Ox 36.7 C 67 16 135/88 H 97 06/14/16 07:23 06/14/16 07:23 06/14/16 07:23 06/14/16 07:23 06/14/16 07:23 06/13/16 06/14/16 06/15/16 05:59 05:59 05:59 Intake Total 1240 300 Output Total 300 1600 Balance 940 -1300 Allergies/Adverse Reactions: No Known Allergies Allergy (Verified 06/13/16 01:57)
[2016-06-14] MEDS: ENOXAPARIN 40 MG/0.4 ML SYR SC SCH (09:25)
[2016-06-14] MEDS: DIVALPROEX ER 250 MG TAB PO SCH ×3 (09:25→20:42)
--- NOTE | 2016-06-14 12:39 | HOSPPROG ---
Hospitalist Progress Note Assessment/Plan: Acute encephalopathy - Improved, likely oversedation in setting of multiple centrally acting sedating medications (recently had gabapentin resumed at 1,200 mg daily, oxycontin dose increased and also takes high dose trazodone. Unlikely MS flare, appreciate neurology input. -d/c oxycontin, prn low dose oxycodone for pain control and to prevent w/d -decreased baclofen dose -d/c trazodone. pt was on very high dose and she does not want to resume it -d/c lubiprostone. was on high dose and this has been known to cause syncope. -resume gabapentin at lower dose MS - doubt flare. Inpt rehab considered, not likely to accept her. Will likely need SNF due to weakness. Full code Dispo - cont inpt, CM involved with dispo planning, likely SNF Subjective: Pt feels much better, though still quite weak. She is up in chair, eating, good appetite. Denies CP, SOB, thomson or vision changes. No abdominal pain , N/V/d. Objective: Vital Signs Temp Pulse Resp BP Pulse Ox 36.7 C 67 16 135/88 H 97 06/14/16 07:23 06/14/16 07:23 06/14/16 07:23 06/14/16 07:23 06/14/16 07:23 06/13/16 06/14/16 06/15/16 05:59 05:59 05:59 Intake Total 1240 300 400 Output Total 300 1600 700 Balance 940 -1300 -300 - Physical Exam Constitutional: no apparent distress Eyes: PERRL Ears, Nose, Mouth, Throat: moist mucous membranes Cardiovascular: regular rate and rhythym Respiratory: no respiratory distress Gastrointestinal: normoactive bowel sounds, soft, non-tender abdomen Skin: warm Musculoskeletal: generalized weakness Neurologic: AAOx3 Psychiatric: interacting appropriately ICD10 Worksheet Patient Problems: Problems Problem Status Onset Fall Acute Multiple sclerosis Acute Weakness Acute Altered mental status Acute
[2016-06-14] MEDS ORDERED: GABAPENTIN 300 MG CAP PO SCH (21:00)
[2016-06-14] MEDS: oxyCODONE IR 5 MG TAB PO PRN (21:27)
[2016-06-14] MEDS ORDERED: traZODone 100 MG TAB PO ONE (23:14)
[2016-06-14] MEDS ORDERED: HYDROmorphONE/DILAUDID 1 MG/ML SYR IVP ONE (23:37)
[2016-06-15] MEDS ORDERED: traZODone 100 MG TAB PO ONE (01:00)
[2016-06-15] MEDS: BACLOFEN 20 MG TAB PO SCH ×4 (05:38→21:09)
[2016-06-15] MEDS: DIVALPROEX ER 250 MG TAB PO SCH ×2 (08:58→20:23)
[2016-06-15] MEDS: ENOXAPARIN 40 MG/0.4 ML SYR SC SCH (08:58)
[2016-06-15] MEDS ORDERED: traZODone 100 MG TAB PO PRN (12:05)
--- NOTE | 2016-06-15 12:06 | HOSPPROG ---
Hospitalist Progress Note Assessment/Plan: Acute encephalopathy - Improved, likely oversedation in setting of multiple centrally acting sedating medications (recently had gabapentin started at 1,200 mg daily, oxycontin dose increased and also takes high dose trazodone and baclofen). Unlikely MS flare, appreciate neurology input. Lengthy discussion with pt regarding uptitration / resumption of meds necessary for pain control and QOL and balancing that with safety -d/c oxycontin, prn low dose oxycodone for pain control and to prevent w/d -increase baclofen to 40 mg QID, was on 5x daily per neurologist -resume trazodone at lower dose, was on 300 hs -d/c lubiprostone. was on high dose and this has been known to cause syncope. -d/c gabapentin, pt doesn't feel this is effective and side effects outweigh benefit MS - doubt flare. Poor mobility. Needs SNF and close neurology f/u. Full code Dispo - cont inpt, CM involved with dispo planning, likely SNF Subjective: Pt feels better, back to baseline mentation, but feels very stiff with lower baclofen dose. Difficulty with ambulation. I saw her ambulating with PT, mobility very poor. Objective: Vital Signs Temp Pulse Resp BP Pulse Ox 36.9 C 82 18 136/96 H 94 06/15/16 08:00 06/15/16 08:00 06/15/16 08:00 06/15/16 08:00 06/15/16 08:00 06/14/16 06/15/16 06/16/16 05:59 05:59 05:59 Intake Total 300 650 120 Output Total 1600 904 Balance -1300 -254 120 - Physical Exam Constitutional: no apparent distress Eyes: PERRL Ears, Nose, Mouth, Throat: moist mucous membranes Cardiovascular: regular rate and rhythym Respiratory: no respiratory distress Gastrointestinal: normoactive bowel sounds, soft, non-tender abdomen Musculoskeletal: other (+spasticity) Neurologic: AAOx3 Psychiatric: interacting appropriately ICD10 Worksheet Patient Problems: Problems Problem Status Onset Fall Acute Multiple sclerosis Acute Weakness Acute Altered mental status Acute
[2016-06-15] MEDS: oxyCODONE IR 5 MG TAB PO PRN ×2 (15:12→20:22)
[2016-06-16] MEDS: oxyCODONE IR 5 MG TAB PO PRN ×2 (02:24→08:23)
[2016-06-16 07:57] VITALS: BP 142/75; PULSE 88; RESP 18; TEMP 98.6; O2SAT 88
[2016-06-16] MEDS: ENOXAPARIN 40 MG/0.4 ML SYR SC SCH (08:23)
[2016-06-16] MEDS: DIVALPROEX ER 250 MG TAB PO SCH (08:23)
[2016-06-16] MEDS: BACLOFEN 20 MG TAB PO SCH ×2 (08:23→12:17)
--- NOTE | 2016-06-16 09:48 | PDIAF ---
- Diagnosis Diagnosis: Multiple sclerosis Code Status: Full Code - Medication Management Discharge Medications: Medications to Continue on Transfer Baclofen [Baclofen 20 mg (*)] 40 mg PO 5XD 04/11/16 [Last Taken 06/12/16] Calcium Carbonate [Oyster Shell Calcium 500 mg (*)] 500 mg PO DAILY 04/11/16 [ Last Taken 06/12/16] [place]-3 Fatty Acids [Fish Oil 1000 mg (*)] 1,000 mg PO DAILY 04/11/16 [Last Taken 06/12/16] Acetaminophen [Tylenol 325mg (*)] 650 mg PO Q4HRS PRN #90 tab 06/16/16 [Last Taken Unknown] Divalproex ER [Depakote ER 250 MG (*)] 250 mg PO BID #60 tab 06/16/16 [Last Taken Unknown] Docusate Sodium [Colace 100 MG (*)] 100 mg PO BID #60 cap 06/16/16 [Last Taken Unknown] oxyCODONE IR [Oxycodone Ir (*)] 5 mg PO Q6H PRN #120 tab 06/16/16 [Last Taken Unknown] traZODone [traZODONE 100MG (*)] 100 - 200 mg PO HS PRN #60 tab 06/16/16 [Last Taken Unknown] Discharge Medications: Refer to the Discharge Home Medication list for PRN reason. PICC Care - Routine: N/A - Orders Services needed: Registered Nurse, Physical Therapy, Occupational Therapy Diet Recommendation: no restrictions on diet Activity/Weight Bearing Restrictions: Walker, up with assistance Additional: Needs f/u with Neurologist in [place]. Also, needs local PCP. - Follow Up Care Current Providers and Referrals: Patient,NotPresent [Unknown] - As per Instructions
--- NOTE | 2016-06-16 19:19 | GDS ---
[f rep st] DISCHARGE SUMMARY DISCHARGE DIAGNOSES: 1. Acute encephalopathy, secondary to over sedation and unintentional opioid overdose. 2. Multiple sclerosis. CONSULTANTS: David Fitzgerald DO, neurologist. IMAGING/PROCEDURES: Head CT, June 13, 2016, was negative for acute stroke or hemorrhage, though sh owed mild atrophy, with periventricular microvascular ischemic gliosis. HISTORY: For details, please see the history and physical dated June 13, 2016. In brief, the christina alfaro is a 65-year-old female with a history of multiple sclerosis, who recently moved to the assisted -living facility in the area from [place], and was admitted to the hospital when she was found to b nikita unarousable after a fall. HOSPITAL COURSE: The patient was admitted to the telemetry unit. Initial head CT was negative. Darryn shelton did respond to Narcan. Further history reveals that she recently was restarted on gabapentin at 1 200 mg a day. In addition, about 3 months ago, she had her OxyContin dose increased to 15 mg q.8 ho urs. She also takes a very high-dose baclofen, as well as high dose of trazodone, and a high dose o f lubiprostone, which has been known to cause syncope. She denies taking additional medications, al though she does have a history of prior medication overdoses. She did require several doses of Narc an, and all of her sedating medications were held for the first 24 hours. Her mentation cleared. S he was restarted on her baclofen, and this dose was slowly up titrated back to 40 mg 5 times daily, which was previously prescribed by her neurologist. I attempted to lower this dose, though she had such severe spasticity and difficulty with ambulation that she felt it was a significant quality-of- life issue to resume her previous dose, which she has been stable on for quite some time. Her gabap entin was discontinued, as was the lubiprostone. Trazodone was resumed at a lower dose. OxyContin was discontinued, in favor of lower dose oxycodone for pain control. Overall, she feels her functio nal capacity is declining, and this has left her with some despair. She denies suicidality, but suly l need to establish care with a primary care physician, and have close followup with her neurologist in [place]. PHYSICAL THERAPY AND OCCUPATIONAL THERAPY EVALUATIONS: Recommended she have rehab at a skilled Nurs ing Facility at discharge. DISPOSITION: Patient is discharged to a intermediate facility in stable condition. FOLLOWUP: She should establish care with a primary care physician locally, and follow up with her n eurologist in [place] in 1-2 weeks. DISCHARGE MEDICATIONS: Please see [employer] for complete updated outpatient medication list. She wi ll continue her baclofen 40 mg p.o. 5 times daily, as prescribed her neurologist. New medications i nclude Tylenol, docusate, oxycodone IR 5 mg p.o. q.6 hours p.r.n., #120, no refills, trazodone 1-200 mg p.o. at bedtime p.r.n., #60, no refills, this is a reduction in dose from 300. She will continu e Depakote 250 mg p.o. twice daily. The following medications were discontinued: Trazodone 300 mg daily, OxyContin 50 mg q.8 hours, gabapentin 400 mg p.o. three times daily, and lubiprostone 24 mcg p.o. twice daily. /[id number]/MODL
== END 2016-06-16 14:01 | DRG 917 ==
LOC: EDUNIT# → F2W 04:58
PROVIDERS: ADMIT Internal Medicine; ATTEND Hospitalist
DX: T40.2X1A Poisoning by other opioids, accidental (unintentional), initial encounter (principal); G92 Toxic encephalopathy; G35 Multiple sclerosis; G89.29 Other chronic pain; Z91.81 History of falling
CPT/HCPCS: 92523-GN; 96374; 97112-GP; 97116-GP; 97162-GP; 97167-GO; 97535-GO; G8981-GP-CK; G8982-GP-CI; G8987-GO-CM; G8988-GO-CJ; G9165-GN-CH; G9166-GN-CH; G9167-GN-CH; J1170; J1650; J2310